=== PATIENT | male | born 1950 | race Caucasian/White ===

== ENCOUNTER 2018-09-06 07:09 | Day surgery (SDC) | payer OTHER ==
[2018-09-05 11:35] VITALS: BMI 25.0
[2018-09-06] MEDS ORDERED: MIDAZOLAM HCL 2 MG/2 ML SINGLE DOSE VIAL ONE (09:08)
[2018-09-06] MEDS ORDERED: LIDOCAINE HCL/PF 2% SDV 5ML VIAL ONE (09:10)
[2018-09-06] MEDS ORDERED: PROPOFOL 20 ML ONE (09:10)
[2018-09-06] MEDS ORDERED: LIDOCAINE HCL 2% (50ML VIAL) INF ONE (09:45)
[2018-09-06 13:45] VITALS: TEMP 98.4
[2018-09-06 13:49] VITALS: BP 100/60; PULSE 66
--- NOTE | 2018-09-08 09:24 | OP ---
DATE OF OPERATION: 09/06/2018 PREOPERATIVE DIAGNOSIS: Right carpal tunnel syndrome. POSTOPERATIVE DIAGNOSIS: Right carpal tunnel syndrome. OPERATIVE PROCEDURE: Right carpal tunnel release. ANESTHESIA: Local with sedation. COMPLICATIONS: None. ESTIMATED BLOOD LOSS: Minimal. INDICATION FOR PROCEDURE: The patient is a 68-year-old male with the above finding, indicated for operative treatment. Risks, benefits, alternatives were discussed with patient at length. Proper informed consent was obtained. PROCEDURE IN DETAIL: After proper identification of patient and correct operative site patient brought to the operating room, placed supine on the operating table. All prominences well padded. Sedation was given by the anesthesiologist. Local was given with 2% lidocaine. Right upper extremity was prepped and draped in the usual sterile fashion. Well-padded tourniquet was placed with a sterile prep. Esmarch bandage used to exsanguinate right upper extremity. The tourniquet was inflated to 250 mmHg. Longitudinal incision made in the proximal aspect of the palm. Incision taken sharply through the skin, with blunt and sharp dissection through the subcutaneous tissue. Palmar fascia divided longitudinally. Transcarpal ligament along with the distal 4 cm of antebrachial fascia was divided longitudinally under direct visualization with loupe magnification. This provided complete release of the median nerve at the wrist. The wound was irrigated and repaired with a 5-0 fast-absorbing plain gut suture. Sterile dressing was applied. Patient brought to the recovery room in stable condition. Alberto [id number]
== END 2018-09-06 10:56 | disposition home or self-care (01) ==
LOC: FASU 07:09
PROVIDERS: ATTEND Orthopaedic Surgery Hand Surgery
PROC: 01N50ZZ Release Median Nerve, Open Approach (ICD-10-PCS; principal; 2018-09-06 09:48)
DX: G56.01 Carpal tunnel syndrome, right upper limb (principal)